=== PATIENT | male | born 1955 | race Caucasian/White ===

== ENCOUNTER 2022-07-24 19:50 | Emergency (ER) | payer OTHER ==
[~2022-07-24] VITALS: Ht 167.6 cm; Wt 99.8 kg
[2022-07-24 20:14] VITALS: BP 162/92
--- NOTE | 2022-07-24 20:16 | NUR ---
[id number]. BILAT HIP PAIN X 3 WEEKS AND R ANKLE PAIN & SWELLING X 3-4 DAYS. PLACED ON BED, AAOX4, IN PAIN 10/10 PS
--- NOTE | 2022-07-24 20:45 | NUR ---
DRESSMAKER OR TAILOR AT BED SIDE
[2022-07-24 21:06] LABS: BASOPHILS % (AUTO) 0.2 % (0.0-2.0); HEMATOCRIT 40 % (39-51); HEMOGLOBIN 13.3 g/dL (13.5-17.5); LYMPHOCYTES # (AUTO) 0.9 K/uL (0.8-4.8); LYMPHOCYTES % (AUTO) 10.2 % (20.0-44.0); MEAN CORPUSCULAR HGB CONC 33 g/dl (31.0-36.0); MEAN CORPUSCULAR VOLUME 87 fL (80-96); MONOCYTES # (AUTO) 0.9 K/uL (0.1-1.30); MONOCYTES % (AUTO) 9.5 % (2.0-12.0); NEUTROPHILS # (AUTO) 7.2 K/uL (1.8-8.9); NEUTROPHILS % (AUTO) 79.1 % (43.0-81.0); PLATELET COUNT (AUTO) 203 K/uL (150-450); WHITE BLOOD COUNT (AUTO) 9.1 K/uL (4.3-11.0)
[2022-07-24] MEDS ORDERED: HYDROCODONE/APAP 5/325MG TABLET ONE (21:11)
[2022-07-24] MEDS ORDERED: KETOROLAC TROMETHAMINE INJ 30 MG/ML VIAL ONE (21:11)
[2022-07-24 21:21] LABS: CALCIUM, SERUM 8.4 mg/dL (8.5-10.1); CREATININE 0.9 mg/dL (0.6-1.3); POTASSIUM 3.3 mmol/L (3.5-5.1)
--- NOTE | 2022-07-24 21:21 | NUR ---
SWAB FOR COVID19 SENT TO LAB
[2022-07-24] MEDS ORDERED: HYDROCODONE/APAP 5/325MG TABLET PO ONE (21:30)
[2022-07-24] MEDS ORDERED: KETOROLAC TROMETHAMINE INJ 30 MG/ML VIAL IM ONE (21:30)
--- NOTE | 2022-07-24 21:57 | NUR ---
[facility] EPRP PAGED PER DR REYES.
--- NOTE | 2022-07-24 23:46 | NUR ---
PT GOING TO [facility] UNDER DR RONDA SAUER AUTH# [id number] PRN BLAIRE SHERIDAN @[phone]
--- NOTE | 2022-07-25 00:05 | NUR ---
20G RAC ESTABLISHED. PATENT AND INTACT. SALINE LOCKED
--- NOTE | 2022-07-25 00:05 | NUR ---
REPORT GIVEN TO JANAE LEA FOR CONTINUATION OF CARE.
--- NOTE | 2022-07-25 01:10 | NUR ---
[facility] AT BEDSIDE FOR TRANSPORT TO [facility]
== END 2022-07-25 01:26 | disposition short-term general hospital (02) ==
LOC: ER 19:54
DX: R26.2 Difficulty in walking, not elsewhere classified (principal); Z98.1 Arthrodesis status; M47.816 Spondylosis without myelopathy or radiculopathy, lumbar region; Z20.822 Contact with and (suspected) exposure to COVID-19; I10 Essential (primary) hypertension; E78.5 Hyperlipidemia, unspecified; E11.9 Type 2 diabetes mellitus without complications; M25.571 Pain in right ankle and joints of right foot; M25.552 Pain in left hip; M25.551 Pain in right hip; G89.29 Other chronic pain; Z91.81 History of falling
CPT/HCPCS: 99285; 72125; 87426; 96372; 93005; 73610; 70450; 72131; 85025; 80048; 36415; J1885; C9803